=== PATIENT | male | born 1970 | race Two or more races ===

== ENCOUNTER 2025-03-09 06:17 | Emergency (ER) | payer OTHER ==
[~2025-03-09] VITALS: Ht 193 cm; Wt 113.4 kg
[2025-03-09] MEDS ORDERED: HYDRALAZINE HCL25 MG PO (06:31)
[2025-03-09] MEDS ORDERED: IRBESARTAN-HCT1 EACH PO (06:32)
[2025-03-09] MEDS ORDERED: METFORMIN HCL500 M3 PO (06:32)
[2025-03-09 06:36] VITALS: BP 150/80; O2SAT 99
[2025-03-09] MEDS ORDERED: ORPHENADRINE CITRATE 30 MG/ML AMPUL IM ONE (07:30)
[2025-03-09] MEDS ORDERED: TRAMADOL HCL 50 MG TABLET PO ONE (07:30)
[2025-03-09] MEDS ORDERED: ORPHENADRINE CITRATE 30 MG/ML AMPUL ONE (07:35)
== END 2025-03-09 09:54 | disposition home or self-care (01) ==
LOC: ER 06:18
DX: M54.2 Cervicalgia (principal); M62.830 Muscle spasm of back; Z88.6 Allergy status to analgesic agent; I10 Essential (primary) hypertension; E11.9 Type 2 diabetes mellitus without complications; Z79.84 Long term (current) use of oral hypoglycemic drugs